=== PATIENT | male | born 1985 | race Caucasian/White ===

== ENCOUNTER 2016-12-25 17:45 | Emergency (ER) | payer MEDICARE, MEDICAID ==
[~2016-12-25] VITALS: Ht 180.3 cm; Wt 78.2 kg
[~2016-12-25 17:45] MED LIST: ASA325 PO; DSS250 PO; LOV40 SUBQ; NOMED; OXY5 PO; POLY1PAC PO; TYL325 PO; VIS25 PO
[2016-12-25 17:47] VITALS: BP 122/69; PULSE 77; RESP 16; O2SAT 97
--- NOTE | 2016-12-25 18:27 | ED.REPORT ---
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 Doing a lot of heavy lifting, felt strain lifting buckets. Reaggrevated while building a gazebo. "There's no one else to take care of the animals, so I can't rest it." Off of methadone for 1 month. Nursing Notes Stated Complaint: LEFT SHOULDER PAIN Chief Complaint: Extremity Trauma Nursing Notes Reviewed: Yes Allergies: Coded Allergies: hydrocodone (Verified Allergy, Unknown, RASH, HIVES, 12/25/16) Scheduled Aspirin-Expunged Drug, Do Not Renew! (Aspirin-Expunged Drug, Do Not Renew!) 325 Mg Tablet 325 MG PO BID Docusate Sod-Expunged Drug, Do Not Renew! (Docusate Sod-Expunged Drug, Do Not Renew!) 250 Mg Capsule 250 MG PO BID Enoxaparin-Expunged Drug, Do Not Renew! (Enoxaparin-Expunged Drug, Do Not Renew! ) 40 Mg Syr 40 MG SUBQ DAILY hydrOXYzine Fernanda-Expunged Drug, Do Not Renew! (Vistaril-Expunged Drug, Do Not Renew!) 25 Mg Capsule 50 MG PO Q4 oxyCODONE-Expunged, Do Not Renew! (oxyCODONE-Expunged, Do Not Renew!) 5 Mg Tablet 20 MG PO Q3 Immediate Release Tablet oxyCODONE-Expunged, Do Not Renew! (oxyCODONE-Expunged, Do Not Renew!) 5 Mg Tablet 20 MG PO Q4H Immediate Release Tablet oxyCODONE-Expunged, Do Not Renew! (oxyCODONE-Expunged, Do Not Renew!) 5 Mg Tablet 15 MG PO Q4H Immediate Release Tablet oxyCODONE-Expunged, Do Not Renew! (oxyCODONE-Expunged, Do Not Renew!) 5 Mg Tablet 20 MG PO Q2.5 Scheduled PRN Acetaminphen-Expunged Drug, Do Not Renew! (Acetaminphen-Expunged Drug, Do Not Renew!) 325 Mg Tablet 650 MG PO Q6H PRN PRN Cyclobenzaprine (Cyclobenzaprine) 10 Mg Tablet 10 MG PO BID PRN PRN Spasm Naproxen (Naprosyn) 500 Mg Tablet 500 MG PO BID PRN PRN For Pain PEG 3350-Expunged Drug, Do Not Renew! (Miralax-Expunged Drug, Do Not Renew!) 17 Gm/Pkt Packet 17 GM PO DAILY PRN PRN hydrOXYzine Fernanda-Expunged Drug, Do Not Renew! (Vistaril-Expunged Drug, Do Not Renew!) 25 Mg Capsule 25 MG PO Q4H PRN PRN Miscellaneous Medications No Historical Medication (No Historical Medication) Ea General Time Seen by MD: 18:26 Chief Complaint Shoulder injury left Hx Obtained From: Patient Arrived By: Walk-in Onset Occurred: 1 week ago Symptom Duration: Since onset Caused by: Accidental Context: Occurred at: Home injury Location: : Shoulder left Severity: Current: Moderate Severity: Maximum: Severe Pertinent Negative: Pt denies other symptoms Exacerbated by: Range of motion Relieved by: Rest Recent Healthcare: No recent doctor visit Similar Sx Previous: Yes Past Medical History Past Medical History Opioid dependence, in remission Smoking History Unknown if Ever Smoker Social History Drug Use: In recovery Review of Systems Basic Review of Systems Respiratory: No shortness of breath Cardiovascular: No chest pain Constitutional: Denies: Chills, Fever Musculoskeletal: Reports: Joint pain, Denies: Extremity pain, Extremity swelling GI: Denies: Abdominal pain Physical Exam Initial Vital Signs Vital Signs (First) Date Time Temp Pulse Resp B/P Pulse Ox O2 Delivery O2 Flow Rate FiO2 12/25/16 17:47 36.8 77 16 122/69 97 Room Air Initial VS: Vital signs normal General/Constitutional: Awake, Alert, No acute distress Neck: Supple, Full range of motion Respiratory / Chest: Atraumatic, Breath sounds NL, Breath sounds = bilat, No respiratory distress Cardiovascular: Heart rate NL, Regular rhythm, Heart sounds NL Left Shoulder: Positive: ROM reduced, Tenderness present... (Moderate), Negative: Erythema present, Neuro deficit present, Pulses distal decreased, Swelling present..., Warmth present Joint above & below: affected area is NL. L arm strength 5/5 Interpretation & Diagnostics X-Ray Interpretation Xray Interpretation: INDICATIONS: 31 year-old male with left shoulder pain after injury one week ago. TECHNIQUE: 3 views of the shoulder were acquired. COMPARISON: None. FINDINGS: Bones: No fractures or dislocations. No suspicious bony lesions. Visualized ribs appear intact. Soft tissues: No suspicious soft tissue calcifications. IMPRESSION: No acute bony injuries of the left shoulder. Dictated by: Aravind Rouse M.D. on 12/25/2016 at 18:51 Approved by: Aravind Rouse M.D. on 12/25/2016 at 18:52 Re-Eval/Medical Decision Med Decision/Clinical Course Straightforward L shoulder strain, no worrisome features. Pt. should do well with home symptomatic measures including rest, sling, local heat. Pt. does not want opioid pain relief given his hx. of previous dependence. Differential Diagnosis: Positive: Strain Diagnosis Appears: Evident Counseled Regarding: Diagnosis, Lab results, Need for follow-up, When/why to return to ED Discharge & Departure Impression: Primary Impression: Left shoulder strain Encounter type: initial encounter Qualified Code: S46.912A - Strain of unspecified muscle, fascia and tendon at shoulder and upper arm level, left arm , initial encounter Disposition: Home Patient Instructions: Shoulder Sprain (ED) Additional Instructions: Rest, local heat, use Naprosyn and Cyclobenzaprine as needed for pain. Use local heat and sling for 5 days. Follow up if not improving, return to ER if anything worsens. Referrals: Edy Wren MD (PCP) 3 to 4 Days if not improving as expected EDSupervising Provider for APC: Wilber Bartholomew MD copies to: Edy Wren MD, Christopher R [facility] Dec 25, 2016 18:27
--- NOTE | 2016-12-25 18:53 | DRSVH ---
PROCEDURE: X-RAY LEFT SHOULDER, MINIMUM TWO VIEWS ([id number]) INDICATIONS: 31 year-old male with left shoulder pain after injury one week ago. TECHNIQUE: 3 views of the shoulder were acquired. COMPARISON: None. FINDINGS: Bones: No fractures or dislocations. No suspicious bony lesions. Visualized ribs appear intact. Soft tissues: No suspicious soft tissue calcifications. IMPRESSION: No acute bony injuries of the left shoulder. Dictated by: Aravind Rouse M.D. on 12/25/2016 at 18:51 Approved by: Aravind Rouse M.D. on 12/25/2016 at 18:52
[2016-12-25] MEDS ORDERED: NAPR500T PO (19:23)
[2016-12-25] MEDS ORDERED: CYCL10TA9 PO (19:23)
== END 2016-12-25 19:50 | disposition home or self-care (01) ==
LOC: SED 17:45
DX: S46.912A Strain of unspecified muscle, fascia and tendon at shoulder and upper arm level, left arm, initial encounter (principal); X50.0XXA Overexertion from strenuous movement or load, initial encounter; Y93.89 Activity, other specified; Y92.009 Unspecified place in unspecified non-institutional (private) residence as the place of occurrence of the external cause; Y99.8 Other external cause status; Z88.5 Allergy status to narcotic agent; Z79.82 Long term (current) use of aspirin